=== PATIENT | female | born 1990 | race Caucasian/White ===

== ENCOUNTER 2016-09-01 11:23 | Inpatient (IN) | payer OTHER ==
[2016-09-01] VITALS (8 sets, daily range): BP systolic 98; BP diastolic 61; PULSE 77–91; RESP 18; Ht 152.4 cm; Wt 65.0 kg
[~2016-09-01] VITALS: Ht 152.4 cm; Wt 65.0 kg
[2016-09-01] MEDS ORDERED: CALC600T11 PO (11:41)
[2016-09-01] MEDS ORDERED: FER325 PO (11:41)
[2016-09-01] MEDS ORDERED: PRENAT PO (11:41)
[2016-09-01] MEDS: LACTATED RINGER'S 1,000 ML IV* SCH ×2 (12:15→20:30)
[2016-09-01] MEDS ORDERED: LACTATED RINGER'S 1,000 ML IV ONE (12:30)
[2016-09-01 12:34] LABS: BASOPHILS % 0.3 % (0.0-2.0); EOSINOPHILS # 1.7 10^3/ul (0.0-0.5); EOSINOPHILS % 15.2 % (0.0-7.0); HEMATOCRIT 33.7 % (37.0-47.0); HEMOGLOBIN 11.3 g/dl (12.0-16.0); LYMPHOCYTES # 2.1 10^3/ul (0.8-2.9); LYMPHOCYTES % 19.4 % (15.0-51.0); MEAN CORPUSCULAR HEMOGLOBIN 30.8 pg (29.0-33.0); MEAN CORPUSCULAR HGB CONC 33.4 g/dl (32.0-37.0); MEAN CORPUSCULAR VOLUME 92.1 fl (82.0-101.0); MONOCYTE # 0.7 10^3/ul (0.3-0.9); MONOCYTES % 6.5 % (0.0-11.0); NEUTROPHIL # 6.5 10^3/ul (1.6-7.5); NEUTROPHILS % 58.6 % (39.0-77.0); PLATELET COUNT 207 10^3/UL (140-440); RED BLOOD COUNT 3.66 10^6/ul (4.20-5.40); RED CELL DISTRIBUTION WIDTH 13.5 % (11.5-14.5)
[2016-09-01 12:36] LABS: CONDITION 1; LH ANALYZER COMMENTS 1
--- NOTE | 2016-09-01 12:47 | RADRPT ---
PROCEDURE: Limited obstetric ultrasound CLINICAL INDICATION: Pain TECHNIQUE: Multiple transverse and longitudinal grayscale images of the pelvis were obtained sanderson sabdominally and transvaginally.. COMPARISON: same day FINDINGS: The cervix is closed with a length of 4.7 cm. There is a single viable intrauterine gestation. Cardiac activity is present with 146 beats per min [place]. There is a breech presentation. The placenta is posterior. There is no evidence for an abruption or placenta previa. RPTAT: AA IMPRESSION: Cervix length measures 4.7 cm. .Shravan Chavez MD, MD Date Time Electronically viewed and signed by .Shravan Chavez MD, on 09/01/2016 12:47 .S/
[2016-09-01] MEDS ORDERED: TERBUTALINE 1 MG/ML INJ SC PRN (14:00)
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
[2016-09-01] MEDS ORDERED: MAGNESIUM SULFATE 4 GM/100 ML 100 ML IV ONE (15:00)
[2016-09-01] MEDS ORDERED: ONDANSETRON 4 MG INJ IV PRN (15:00)
[2016-09-01] MEDS: LACTATED RINGER'S 1,000 ML IV SCH ×2 (15:31→22:43)
[2016-09-01] MEDS: BETAMET NA PHOS/AC(6 MG/ML) 5ML INJ IM SCH (15:43)
[2016-09-01] MEDS: MAGNESIUM SULFATE 20 GM/500 ML 500 ML IV SCH (16:10)
[2016-09-01 16:23] LABS: ADD UMIC NO; URINE BILIRUBIN (Dip) NEGATIVE (NEGATIVE); URINE BLOOD (Dip) NEGATIVE (NEGATIVE); URINE COLOR LT. YELLOW (YELLOW); URINE GLUCOSE (Dip) NEGATIVE (NEGATIVE); URINE KETONES (Dip) NEGATIVE (NEGATIVE); URINE LEUKOCYTE ESTERASE (Dip) NEGATIVE (NEGATIVE); URINE NITRITE (Dip) NEGATIVE (NEGATIVE); URINE TOTAL PROTEIN (Dip) NEGATIVE (NEGATIVE); URINE UROBILINOGEN (Dip) 0.2 E.U./dL (0.1-1.0)
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
[2016-09-02] MEDS: MAGNESIUM SULFATE 20 GM/500 ML 500 ML IV SCH ×3 (01:13→22:17)
[2016-09-02] MEDS: ACETAMINOPHEN 325 MG TAB PO PRN (01:42)
[2016-09-02] MEDS: LACTATED RINGER'S 1,000 ML IV* SCH ×3 (04:30→20:49)
[2016-09-02] MEDS: LACTATED RINGER'S 1,000 ML IV SCH ×3 (07:54→22:43)
[2016-09-02] MEDS: FERROUS SULFATE (EC) 325 MG TAB PO SCH (10:41)
[2016-09-02] MEDS: MULTIVIT/MIN/FOLATE/IRON/PREN TAB PO SCH (10:41)
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
[2016-09-02] MEDS: BETAMET NA PHOS/AC(6 MG/ML) 5ML INJ IM SCH (15:43)
[2016-09-02] MEDS: INDOMETHACIN 25 MG PO SCH ×2 (15:46→18:00)
[2016-09-03] MEDS: INDOMETHACIN 25 MG PO SCH ×3 (00:58→12:04)
[2016-09-03] MEDS: LACTATED RINGER'S 1,000 ML IV SCH ×2 (01:18→09:42)
[2016-09-03] MEDS: MAGNESIUM SULFATE 20 GM/500 ML 500 ML IV SCH (06:49)
[2016-09-03] MEDS: ACETAMINOPHEN 325 MG TAB PO PRN ×2 (08:01→15:04)
[2016-09-03] MEDS: MULTIVIT/MIN/FOLATE/IRON/PREN TAB PO SCH (09:40)
[2016-09-03] MEDS: FERROUS SULFATE (EC) 325 MG TAB PO SCH (09:40)
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
--- NOTE | 2016-09-03 16:11 | PD.PPDC ---
[facility] Discharge Instruction Provider Information Physician Information 26 y/o female had cessation of UCs by Magnesium Sulfate Diagnosis Final Diagnosis: S/P uterine contractions Condition Patient Condition: Good (on EFM no U/C seen and patient did not have any other complaints ) Diet Diet: Resume Regular Diet Activity/Restrictions Activity: Bedrest May Shower Restrictions: No Exercising No Lifting Nothing in the Vagina Follow-up Follow-up with Physician: 1, Week/Weeks (in clinic for F/U ) Return to clinic for Comment: persistent abdominal discomfort LIANG FRANCE MD Sep 03, 2016 16:11
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
[2016-09-03] MEDS ORDERED: NIFEdipine 10 MG CAP PO SCH (18:00)
== END 2016-09-03 16:53 | disposition home or self-care (01) | DRG 780 ==
LOC: OBT 11:23 → L-D 11:28 → OBT 14:37 → L-D 14:39 → OBG 23:25
PROVIDERS: ADMIT Obstetrics & Gynecology; ATTEND Obstetrics & Gynecology
DX: O47.02 False labor before 37 completed weeks of gestation, second trimester (principal); Z3A.24 24 weeks gestation of pregnancy; V49.9XXA Car occupant (driver) (passenger) injured in unspecified traffic accident, initial encounter; Y92.410 Unspecified street and highway as the place of occurrence of the external cause
CPT/HCPCS: 36415; 76815; 76817; 81003; 83735; 85025; 86850; 86900; 86901; 96360; 96361; 96372; G0463; J0702; J3105; J3475; J7120

== ENCOUNTER 2016-10-06 00:06 | Outpatient (CLI) | payer OTHER ==
[~2016-10-06] VITALS: Ht 154.9 cm; Wt 66.3 kg
[~2016-10-06 00:06] MED LIST: CALC600T11 PO; FER325 PO; PRENAT PO
[2016-10-06 01:23] VITALS: BP 101/70; PULSE 98; RESP 18
[2016-10-06] MEDS ORDERED: PRO20 PO (01:26)
[2016-10-06] MEDS ORDERED: NITR-58 PO (01:27)
[2016-10-06] MEDS ORDERED: LACTATED RINGER'S 1,000 ML IV STA (01:41)
[2016-10-06] MEDS ORDERED: NIFEdipine 10 MG CAP PO SCH (01:48)
[2016-10-06] MEDS: LACTATED RINGER'S 1,000 ML IV SCH ×2 (02:00→02:54)
--- NOTE | 2016-10-06 02:30 | RADRPT ---
PROCEDURE: US OB biophysical profile. CLINICAL INDICATION: decreased movements TECHNIQUE: Multiple sonographic images of the pelvis were obtained. The images were reviewed on a PACS workstation. COMPARISON: No pertinent prior examinations were submitted for comparison. FINDINGS: There is a single viable intrauterine gestation. Cardiac activity is present with 163 beats per min [place]. There is a vertex presentation. The placenta is posterior and grade 1 in appearance. There is a increased amount of amniotic fluid with an ROBYN = 21.4 cm. The cervix is closed, measuring up to 6.3 cm. Biophysical profile: movement 2/2 tone 2/2. breathing 2/2 ROBYN 2/2 Total 03/08 IMPRESSION: Normal biophysical profile. Polyhydramnios. RPTAT: HIKT . .Chuy Field MD, Date Time Electronically viewed and signed by .Chuy Field MD, on 10/06/2016 02:29 .T/
[2016-10-06 02:35] LABS: URINE BLOOD (Dip) POC Negative (NEGATIVE)
[2016-10-06] MEDS: TERBUTALINE 1 MG/ML INJ SC PRN ×2 (02:45→05:18)
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
--- NOTE | 2016-10-06 07:45 | TRIAGE ---
OB Triage Datetime Report Generated by CPN: 10/06/2016 07:44 Datetime: 10/06/2016 07:00 Stage of : OB Triage Datetime: 10/06/2016 06:30 Labor Evaluation Frequency: 0 Monitor Mode: External Resting Tone O'Donnell: Relaxed Heart Rate FHR Baseline Rate: 145 Monitor Mode: External US Variability: Moderate 6-25 bpm Accelerations: 15X15 Decelerations: Variable Category: Category I Comments: Appropriate for ga Datetime: 10/06/2016 06:12 Stage of : OB Triage Datetime: 10/06/2016 05:30 Stage of : OB Triage Labor Evaluation Frequency: X3 Monitor Mode: External Duration (sec)2399: 30-50 Quality: Mild Pattern: Normal: <= 5 Contractions in 10 Minutes Resting Tone O'Donnell: Relaxed Heart Rate FHR Baseline Rate: 135 Monitor Mode: External US Variability: Moderate 6-25 bpm Accelerations: 15X15 Decelerations: None Datetime: 10/06/2016 04:30 Stage of : OB Triage Labor Evaluation Frequency: X 4 Monitor Mode: External Duration (sec)2399: 30-50 Quality: Mild Pattern: Normal: <= 5 Contractions in 10 Minutes Resting Tone O'Donnell: Relaxed Heart Rate FHR Baseline Rate: 135 Monitor Mode: External US Variability: Moderate 6-25 bpm Accelerations: 15X15 Decelerations: None Datetime: 10/06/2016 03:30 Stage of : OB Triage Labor Evaluation Frequency: IRREG Monitor Mode: External Duration (sec)2399: 60-70 Quality: Mild Pattern: Normal: <= 5 Contractions in 10 Minutes Resting Tone O'Donnell: Relaxed Heart Rate FHR Baseline Rate: 135 Monitor Mode: External US Variability: Moderate 6-25 bpm Accelerations: 15X15 Decelerations: None Category: Category I Datetime: 10/06/2016 02:30 Stage of : OB Triage Labor Evaluation Frequency: 3-5 Monitor Mode: External Duration (sec)2399: 40-100 Quality: Mild Pattern: Normal: <= 5 Contractions in 10 Minutes Resting Tone O'Donnell: Relaxed Heart Rate FHR Baseline Rate: 135 Monitor Mode: External US Variability: Moderate 6-25 bpm Accelerations: 15X15 Decelerations: None Category: Category I Datetime: 10/06/2016 01:39 Stage of : OB Triage Datetime: 10/06/2016 01:37 Stage of : OB Triage Datetime: 10/06/2016 01:30 Stage of : OB Triage Labor Evaluation Frequency: 3-5 Monitor Mode: External Duration (sec)2399: 40-100 Quality: Mild Resting Tone O'Donnell: Relaxed Heart Rate FHR Baseline Rate: 135 Monitor Mode: External US Variability: Moderate 6-25 bpm Accelerations: 15X15 Decelerations: None Category: Category I Datetime: 10/06/2016 01:10 Stage of : OB Triage Datetime: 10/06/2016 00:38 Assessment Type: Triage Maternal Assessment Level of Consciousness: Fully Conscious DTR's/Clonus: DTRs 1+; No Clonus Headache: Denies Blurred Vision: No Respiratory Effort: Unlabored Breath Sounds, Left: Clear and Equal Breath Sounds, Right: Clear and Equal Nausea/Vomiting: Denies RUQ Epigastric Pain: Denies Lower Extremities Edema: None Degree: None Upper Extremities Edema: None Degree: None Facial Edema: None Fall Risk Assessment History of Falling: (0) No Secondary Diagnosis: (15) Yes (Annotations: PTL ONBEDREST AND PROCARDIA) Ambulatory Aid: (0) Bedrest/Nurse Assist IV Therapy: (0) No Gait: (0) Normal/Bedrest/Immobile Mental Status: (0) Oriented to Own Ability Fall Score: 15 Fall Risk Score Definition: No Risk: No action required Datetime: 10/06/2016 00:21 Stage of : OB Triage Monitor Mode: External US Datetime: 10/06/2016 00:14 Monitor Mode: External Datetime: 10/06/2016 00:03 Time of Arrival: 10/05/2016 23:57 EGA: 29.0 Arrived By: Ambulatory Arrived From: Home Chief Complaint: UCS Movement: Decreased Contractions: Irregular Time Contractions Began: 10/05/2016 15:00 Contractions: irregular Rupture of Membranes: Denies Vaginal Bleeding: None Vaginal Discharge: Denies Recent Sexual Intercouse: Denies Abdominal Trauma: Not Applicable Patient Complaints: Cramping Provider Notified: REICHE Initial Plan: VS, EFM, IV HYDRATION, PROCARDIA, BPP. CL, TERB PRN Datetime: 09/03/2016 17:00 Stage of : Antepartum Maternal Assessment Level of Consciousness: Fully Conscious Headache: Denies Nausea/Vomiting: Denies RUQ Epigastric Pain: Denies Labor Evaluation Frequency: 0/hr Monitor Mode: External Vaginal Bleeding: None Datetime: 09/03/2016 16:05 Stage of : Antepartum Maternal Assessment Level of Consciousness: Fully Conscious Headache: Denies Nausea/Vomiting: Denies RUQ Epigastric Pain: Denies Labor Evaluation Frequency: 0/hr Monitor Mode: External Vaginal Bleeding: None Datetime: 09/03/2016 15:05 Stage of : Antepartum Maternal Assessment Level of Consciousness: Fully Conscious Headache: Denies Nausea/Vomiting: Denies RUQ Epigastric Pain: Denies Labor Evaluation Frequency: 0/hr Monitor Mode: External Vaginal Bleeding: None Datetime: 09/03/2016 15:02 Pain Assessment Pain Scale: 3 Pain Presence: Constant Pain Type: Dull Pain Location: Head Pain Relief Measures: Pain Medication Given Datetime: 09/03/2016 14:00 Stage of : Antepartum Maternal Assessment Level of Consciousness: Fully Conscious Headache: Denies Nausea/Vomiting: Denies RUQ Epigastric Pain: Denies Labor Evaluation Frequency: 0/hr Monitor Mode: External Pain Assessment Pain Scale: 0 Pain Presence: None/Denies Vaginal Bleeding: None Datetime: 09/03/2016 13:00 Stage of : Antepartum Maternal Assessment Level of Consciousness: Fully Conscious Headache: Denies Nausea/Vomiting: Denies RUQ Epigastric Pain: Denies Labor Evaluation Frequency: 0/hr Monitor Mode: External Pain Assessment Pain Scale: 0 Pain Presence: None/Denies Vaginal Bleeding: None Datetime: 09/03/2016 12:29 Heart Rate FHR Baseline Rate: 145 Variability: Moderate 6-25 bpm Comments: ega 24.2/ fht's q shift Datetime: 09/03/2016 12:00 Stage of : Antepartum Maternal Assessment Level of Consciousness: Fully Conscious DTR's/Clonus: DTRs 2+ Headache: Denies Breath Sounds, Left: Clear and Equal Breath Sounds, Right: Clear and Equal Nausea/Vomiting: Denies RUQ Epigastric Pain: Denies Labor Evaluation Frequency: 0/hr Monitor Mode: External Pain Assessment Pain Scale: 0 Pain Presence: None/Denies Vaginal Bleeding: None Datetime: 09/03/2016 11:52 Comments: orders from dr. ochoa to d/c magnesium sulfate at 1500 today and start on procardia 10m g q 6 Datetime: 09/03/2016 11:00 Stage of : Antepartum Maternal Assessment Level of Consciousness: Fully Conscious Headache: Denies Nausea/Vomiting: Denies RUQ Epigastric Pain: Denies Labor Evaluation Frequency: 0/hr Monitor Mode: External Pain Assessment Pain Scale: 0 Pain Presence: None/Denies Vaginal Bleeding: None Datetime: 09/03/2016 10:00 Stage of : Antepartum Maternal Assessment Level of Consciousness: Fully Conscious Headache: Denies Nausea/Vomiting: Denies RUQ Epigastric Pain: Denies Labor Evaluation Frequency: 0/hr Monitor Mode: External Pain Assessment Pain Scale: 0 Pain Presence: None/Denies Vaginal Bleeding: None Datetime: 09/03/2016 09:00 Stage of : Antepartum Maternal Assessment Level of Consciousness: Fully Conscious Headache: Denies Nausea/Vomiting: Denies RUQ Epigastric Pain: Denies Labor Evaluation Frequency: 0/hr Monitor Mode: External Pain Assessment Pain Scale: 0 Pain Presence: None/Denies Vaginal Bleeding: None Datetime: 09/03/2016 07:54 Pain Assessment Pain Scale: 2 Pain Presence: Constant Pain Type: Dull Pain Location: Head Pain Relief Measures: Pain Medication Given Datetime: 09/03/2016 07:53 Stage of : Antepartum Assessment Type: Ongoing Assessment Maternal Assessment Level of Consciousness: Fully Conscious Maternal Assessment Level of Consciousness: Fully Conscious DTR's/Clonus: DTRs 2+; No Clonus DTR's/Clonus: DTRs 2+ Headache: Denies Headache: Frontal Blurred Vision: No Blurred Vision: No Respiratory Effort: Unlabored; Regular Rhythm; Equal Expansion Breath Sounds, Left: Clear and Equal Breath Sounds, Right: Clear and Equal Nausea/Vomiting: Denies Nausea/Vomiting: Denies RUQ Epigastric Pain: Denies RUQ Epigastric Pain: Denies Lower Extremities Edema: None Degree: None Upper Extremities Edema: None Degree: None Facial Edema: None Temperature Route: Oral Fall Risk Assessment History of Falling: (0) No Secondary Diagnosis: (0) No Ambulatory Aid: (0) Bedrest/Nurse Assist IV Therapy: (20) Yes Gait: (0) Normal/Bedrest/Immobile Mental Status: (0) Oriented to Own Ability Fall Score: 20 Fall Risk Score Definition: No Risk: No action required Labor Evaluation Frequency: 0/hr Monitor Mode: External Comments: nst q shift ega 24.2 Pain Assessment Pain Scale: 0 Pain Presence: None/Denies Vaginal Bleeding: None Datetime: 09/03/2016 06:56 Labor Evaluation Frequency: 0 Monitor Mode: External Duration (sec)2399: denies Resting Tone O'Donnell: Relaxed Pain Presence: None/Denies Pain Type: N/A Datetime: 09/03/2016 06:00 Labor Evaluation Frequency: x1 Monitor Mode: External Duration (sec)2399: 50 Resting Tone O'Donnell: Relaxed Pain Presence: None/Denies Pain Type: N/A Datetime: 09/03/2016 05:00 Labor Evaluation Frequency: irregular Monitor Mode: External Duration (sec)2399: 40-50 Quality: Mild Resting Tone O'Donnell: Relaxed Pain Presence: None/Denies Pain Type: N/A Datetime: 09/03/2016 04:00 Labor Evaluation Frequency: 0 Monitor Mode: External Duration (sec)2399: denies Resting Tone O'Donnell: Relaxed Datetime: 09/03/2016 03:00 Labor Evaluation Frequency: x3 Monitor Mode: External Duration (sec)2399: 40-70 Resting Tone O'Donnell: Relaxed Pain Presence: None/Denies Pain Type: N/A Datetime: 09/03/2016 02:00 Labor Evaluation Frequency: 0 Monitor Mode: External Duration (sec)2399: denies Resting Tone O'Donnell: Relaxed Pain Presence: None/Denies Pain Type: N/A Datetime: 09/03/2016 01:00 Labor Evaluation Frequency: x1 Monitor Mode: External Duration (sec)2399: 50 Resting Tone O'Donnell: Relaxed Pain Presence: None/Denies Pain Type: N/A Datetime: 09/03/2016 00:49 Maternal Assessment Level of Consciousness: Fully Conscious Headache: Denies Blurred Vision: No Datetime: 09/03/2016 00:00 Labor Evaluation Frequency: 0 Monitor Mode: External Duration (sec)2399: denies Resting Tone O'Donnell: Relaxed Heart Rate FHR Baseline Rate: 165 Monitor Mode: Doppler Comments: listened for one full minute. Datetime: 09/02/2016 23:00 Labor Evaluation Frequency: 0 Monitor Mode: External Resting Tone O'Donnell: Relaxed Pain Presence: None/Denies Pain Type: N/A Datetime: 09/02/2016 22:00 Labor Evaluation Frequency: 0 Monitor Mode: External Resting Tone O'Donnell: Relaxed Pain Presence: None/Denies Pain Type: N/A Datetime: 09/02/2016 21:00 Labor Evaluation Frequency: x1 Monitor Mode: External Duration (sec)2399: 40 Quality: Mild Resting Tone O'Donnell: Relaxed Pain Presence: None/Denies Pain Type: N/A Datetime: 09/02/2016 20:00 Labor Evaluation Frequency: 0 Monitor Mode: External Duration (sec)2399: denies Resting Tone O'Donnell: Relaxed Pain Presence: None/Denies Pain Type: N/A Datetime: 09/02/2016 19:49 Stage of : Antepartum Assessment Type: Ongoing Assessment Maternal Assessment Level of Consciousness: Fully Conscious DTR's/Clonus: DTRs 2+; No Clonus Headache: Denies Blurred Vision: No Respiratory Effort: Unlabored; Regular Rhythm; Equal Expansion Breath Sounds, Left: Clear and Equal Breath Sounds, Right: Clear and Equal Nausea/Vomiting: Denies RUQ Epigastric Pain: Denies Lower Extremities Edema: None Degree: None Upper Extremities Edema: None Degree: None Facial Edema: None Temperature Route: Oral Fall Risk Assessment History of Falling: (0) No Secondary Diagnosis: (0) No Ambulatory Aid: (0) Bedrest/Nurse Assist IV Therapy: (0) No Gait: (0) Normal/Bedrest/Immobile Mental Status: (0) Oriented to Own Ability Fall Score: 0 Fall Risk Score Definition: No Risk: No action required Pain Presence: None/Denies Pain Type: N/A Datetime: 09/02/2016 19:00 Labor Evaluation Frequency: NONE Monitor Mode: External Pattern: Normal: <= 5 Contractions in 10 Minutes Resting Tone O'Donnell: Relaxed Datetime: 09/02/2016 17:52 Labor Evaluation Frequency: X1 Monitor Mode: External Duration (sec)2399: 50 Pattern: Normal: <= 5 Contractions in 10 Minutes Resting Tone O'Donnell: Relaxed Datetime: 09/02/2016 17:00 Labor Evaluation Frequency: NONE Monitor Mode: External Pattern: Normal: <= 5 Contractions in 10 Minutes Resting Tone O'Donnell: Relaxed Datetime: 09/02/2016 16:00 Labor Evaluation Frequency: NONE Monitor Mode: External Pattern: Normal: <= 5 Contractions in 10 Minutes Resting Tone O'Donnell: Relaxed Datetime: 09/02/2016 15:00 Labor Evaluation Frequency: NONE Monitor Mode: External Pattern: Normal: <= 5 Contractions in 10 Minutes Resting Tone O'Donnell: Relaxed Datetime: 09/02/2016 14:00 Labor Evaluation Frequency: NONE Monitor Mode: External Pattern: Normal: <= 5 Contractions in 10 Minutes Resting Tone O'Donnell: Relaxed Datetime: 09/02/2016 13:00 Labor Evaluation Frequency: X1 Monitor Mode: External Duration (sec)2399: 60 Quality: Mild Pattern: Normal: <= 5 Contractions in 10 Minutes Resting Tone O'Donnell: Relaxed Datetime: 09/02/2016 12:00 Labor Evaluation Frequency: X1 Monitor Mode: External Duration (sec)2399: 40 Quality: Mild Pattern: Normal: <= 5 Contractions in 10 Minutes Resting Tone O'Donnell: Relaxed Datetime: 09/02/2016 11:00 Labor Evaluation Frequency: NONE Monitor Mode: External Pattern: Normal: <= 5 Contractions in 10 Minutes Resting Tone O'Donnell: Relaxed Datetime: 09/02/2016 10:10 Monitor Mode: Doppler Comments: HEART TONE OBTAINED FOR 1 MINUTE. FHTS IN THE 140'S. Datetime: 09/02/2016 10:01 Labor Evaluation Frequency: 40-50 Monitor Mode: External Quality: Mild Pattern: Normal: <= 5 Contractions in 10 Minutes Resting Tone O'Donnell: Relaxed Datetime: 09/02/2016 09:00 Labor Evaluation Frequency: X2 Monitor Mode: External Duration (sec)2399: 40-50 Quality: Mild Pattern: Normal: <= 5 Contractions in 10 Minutes Resting Tone O'Donnell: Relaxed Datetime: 09/02/2016 08:20 Assessment Type: Ongoing Assessment Maternal Assessment Level of Consciousness: Fully Conscious DTR's/Clonus: DTRs 2+; No Clonus Headache: Denies Blurred Vision: No Respiratory Effort: Unlabored; Regular Rhythm; Equal Expansion Breath Sounds, Left: Clear and Equal Breath Sounds, Right: Clear and Equal Nausea/Vomiting: Denies RUQ Epigastric Pain: Denies Lower Extremities Edema: None Upper Extremities Edema: Bilateral Upper Extremities Facial Edema: None Fall Risk Assessment History of Falling: (0) No Secondary Diagnosis: (0) No Ambulatory Aid: (0) Bedrest/Nurse Assist IV Therapy: (20) Yes Gait: (0) Normal/Bedrest/Immobile Mental Status: (0) Oriented to Own Ability Fall Score: 20 Fall Risk Score Definition: No Risk: No action required Datetime: 09/02/2016 08:00 Labor Evaluation Frequency: NONE Monitor Mode: External Pattern: Normal: <= 5 Contractions in 10 Minutes Resting Tone O'Donnell: Relaxed Datetime: 09/02/2016 06:59 Labor Evaluation Frequency: x2 Monitor Mode: External Duration (sec)2399: 50 Quality: Mild Resting Tone O'Donnell: Relaxed Contraction Comments: pt without complaint of uc pain Datetime: 09/02/2016 06:00 Labor Evaluation Frequency: x2 Monitor Mode: External Duration (sec)2399: 70-80 Quality: Mild Resting Tone O'Donnell: Relaxed Contraction Comments: pt feels ucs as mild Pain Assessment Pain Scale: 3 Pain Presence: Intermittent Pain Type: Cramping Pain Location: Abdomen Pain Goal: 0 Datetime: 09/02/2016 05:00 Labor Evaluation Frequency: x2 Monitor Mode: External Duration (sec)2399: 40 Quality: Mild Resting Tone O'Donnell: Relaxed Contraction Comments: pt c/o mild uc pain Datetime: 09/02/2016 04:00 Labor Evaluation Frequency: x4 Monitor Mode: External Duration (sec)2399: 50-90 Quality: Mild Resting Tone O'Donnell: Relaxed Contraction Comments: pt c/o mild uc pain Pain Assessment Pain Scale: 3 Pain Presence: Intermittent Pain Type: Crushing Pain Location: Abdomen Pain Goal: 0 Datetime: 09/02/2016 03:00 Labor Evaluation Frequency: x3 Monitor Mode: External Duration (sec)2399: 40-80 Quality: Mild Resting Tone O'Donnell: Relaxed Contraction Comments: pt c/o mild uc pain Pain Assessment Pain Scale: 2 Pain Presence: Intermittent Pain Type: Contraction Pain Location: Abdomen Pain Goal: 0 Datetime: 09/02/2016 02:00 Labor Evaluation Frequency: x2 Monitor Mode: External Duration (sec)2399: 40-70 Quality: Mild Resting Tone O'Donnell: Relaxed Contraction Comments: pt without complaint of uc pain Pain Assessment Pain Scale: 6 Pain Presence: Constant Pain Type: Ache Pain Location: Head Pain Relief Measures: Pain Medication Given Datetime: 09/02/2016 01:42 Pain Assessment Pain Scale: 6 Pain Presence: Constant Pain Type: Ache Pain Location: Head Pain Goal: 4 Pain Relief Measures: Pain Medication Given; Comfort Measures Datetime: 09/02/2016 01:00 Labor Evaluation Frequency: x5 Monitor Mode: External Duration (sec)2399: 40-60 Quality: Mild Resting Tone O'Donnell: Relaxed Contraction Comments: pt c/o mild uc pain in lower abdominal area Pain Assessment Pain Scale: 2 Pain Presence: Intermittent Pain Type: Cramping Pain Location: Abdomen Datetime: 09/02/2016 00:00 Labor Evaluation Frequency: x2 Monitor Mode: External Duration (sec)2399: 40-70 Quality: Mild Resting Tone O'Donnell: Relaxed Contraction Comments: pt without complaint of uc pain Datetime: 09/01/2016 23:48 Maternal Assessment Level of Consciousness: Fully Conscious Headache: Denies Blurred Vision: No Nausea/Vomiting: Denies RUQ Epigastric Pain: Denies Facial Edema: None Datetime: 09/01/2016 22:27 Assessment Type: Admission Assessment Vaginal Bleeding: None Maternal Assessment Level of Consciousness: Fully Conscious DTR's/Clonus: DTRs 2+; No Clonus Headache: Denies Blurred Vision: No Respiratory Effort: Unlabored; Regular Rhythm; Equal Expansion Breath Sounds, Left: Clear and Equal Breath Sounds, Right: Clear and Equal Nausea/Vomiting: Denies RUQ Epigastric Pain: Denies Lower Extremities Edema: None Degree: None Upper Extremities Edema: None Degree: None Facial Edema: None Fall Risk Assessment History of Falling: (0) No Secondary Diagnosis: (0) No Ambulatory Aid: (0) Bedrest/Nurse Assist IV Therapy: (20) Yes Gait: (0) Normal/Bedrest/Immobile Mental Status: (0) Oriented to Own Ability Fall Score: 20 Fall Risk Score Definition: No Risk: No action required Labor Evaluation Frequency: 10-12 Duration (sec)2399: 20 Quality: Mild Pattern: Normal: <= 5 Contractions in 10 Minutes Resting Tone O'Donnell: Relaxed Pain Assessment Pain Scale: 2 Pain Presence: Intermittent Pain Type: Dull; Ache Pain Location: Abdomen Pain Goal: 2 Vaginal Exam Membrane Status: Intact Datetime: 09/01/2016 22:11 Maternal Assessment Level of Consciousness: Fully Conscious Headache: Denies Respiratory Effort: Unlabored Breath Sounds, Left: Clear and Equal Breath Sounds, Right: Clear and Equal RUQ Epigastric Pain: Denies Labor Evaluation Frequency: 10-12 Monitor Mode: External Duration (sec)2399: 20-25 Quality: Mild Pattern: Normal: <= 5 Contractions in 10 Minutes Resting Tone O'Donnell: Relaxed Vaginal Exam Membrane Status: Intact Datetime: 09/01/2016 21:09 Stage of : Antepartum Maternal Assessment Level of Consciousness: Fully Conscious DTR's/Clonus: DTRs 2+ Headache: Denies Blurred Vision: No Respiratory Effort: Unlabored Breath Sounds, Left: Clear and Equal Breath Sounds, Right: Clear and Equal Nausea/Vomiting: Denies RUQ Epigastric Pain: Denies Facial Edema: None Labor Evaluation Frequency: X1 Monitor Mode: External Duration (sec)2399: 35 Quality: Mild Pattern: Normal: <= 5 Contractions in 10 Minutes Resting Tone O'Donnell: Relaxed Pain Assessment Pain Scale: 2 Pain Presence: Intermittent Pain Type: Dull; Ache Pain Location: Abdomen Pain Goal: 2 Pain Relief Measures: Comfort Measures Vaginal Exam Membrane Status: Intact Datetime: 09/01/2016 20:37 Labor Evaluation Frequency: 0 Monitor Mode: External Duration (sec)2399: 0 Resting Tone O'Donnell: Relaxed Comments: OFF THE MONITOR Datetime: 09/01/2016 19:57 Maternal Assessment Level of Consciousness: Fully Conscious DTR's/Clonus: DTRs 2+; No Clonus Headache: Denies Blurred Vision: No Nausea/Vomiting: Denies RUQ Epigastric Pain: Denies Facial Edema: None Labor Evaluation Frequency: X3 Monitor Mode: External Duration (sec)2399: 40-50 Quality: Mild Pattern: Normal: <= 5 Contractions in 10 Minutes Resting Tone O'Donnell: Relaxed Comments: OFF MONITOR Pain Assessment Pain Scale: 3 Pain Presence: Intermittent Pain Type: Cramping Pain Location: Abdomen Pain Goal: 0 Datetime: 09/01/2016 19:21 Labor Evaluation Frequency: X4 Monitor Mode: External Duration (sec)2399: 40-50 Quality: Mild Pattern: Normal: <= 5 Contractions in 10 Minutes Resting Tone O'Donnell: Relaxed Comments: OFF THE MONITOR Datetime: 09/01/2016 19:08 Headache: Denies Labor Evaluation Frequency: X2 Monitor Mode: External Duration (sec)2399: 40-50 Quality: Mild Resting Tone O'Donnell: Relaxed Comments: OFF MONITOR Pain Assessment Pain Scale: 4 Pain Presence: Intermittent Pain Type: Cramping Pain Location: Abdomen Pain Goal: 0 Pain Relief Measures: Comfort Measures Datetime: 09/01/2016 18:24 Labor Evaluation Frequency: 3-5 Monitor Mode: External Duration (sec)2399: 40-60 Quality: Mild Pattern: Normal: <= 5 Contractions in 10 Minutes Resting Tone O'Donnell: Relaxed Comments: OFF THE MONITOR Datetime: 09/01/2016 17:23 Labor Evaluation Frequency: 3-4 Monitor Mode: External Duration (sec)2399: 40-50 Quality: Mild Pattern: Normal: <= 5 Contractions in 10 Minutes Resting Tone O'Donnell: Relaxed Comments: OFF THE MONITOR Datetime: 09/01/2016 17:05 Labor Evaluation Frequency: 3-5 Monitor Mode: External Duration (sec)2399: 40-50 Quality: Mild Resting Tone O'Donnell: Relaxed Comments: OFF MONITOR Datetime: 09/01/2016 16:45 Stage of : Antepartum Assessment Type: Admission Assessment Maternal Assessment Level of Consciousness: Fully Conscious DTR's/Clonus: DTRs 2+; No Clonus Headache: Denies Blurred Vision: No Respiratory Effort: Unlabored Breath Sounds, Left: Clear and Equal Breath Sounds, Right: Clear and Equal Nausea/Vomiting: Denies RUQ Epigastric Pain: Denies Lower Extremities Edema: None Degree: None Upper Extremities Edema: None Degree: None Facial Edema: None Temperature Route: Oral Fall Risk Assessment History of Falling: (0) No Secondary Diagnosis: (0) No Ambulatory Aid: (0) Bedrest/Nurse Assist IV Therapy: (20) Yes Gait: (0) Normal/Bedrest/Immobile Mental Status: (0) Oriented to Own Ability Fall Score: 20 Fall Risk Score Definition: No Risk: No action required Labor Evaluation Frequency: X3 Monitor Mode: External Duration (sec)2399: 40-50 Quality: Mild Pattern: Normal: <= 5 Contractions in 10 Minutes Resting Tone O'Donnell: Relaxed Heart Rate FHR Baseline Rate: OFF MONITOR Monitor Mode: External US Datetime: 09/01/2016 14:30 Stage of : OB Triage Maternal Assessment Level of Consciousness: Fully Conscious Labor Evaluation Frequency: 1-3 Monitor Mode: External Duration (sec)2399: 30-50 Quality: Mild Resting Tone O'Donnell: Relaxed Monitor Mode: ORDERS FOR LIMITED MONITORING Pain Assessment Pain Scale: 3 Pain Presence: Intermittent Pain Type: Cramping Pain Location: Perineum Pain Goal: 3 Pain Relief Measures: Comfort Measures Vaginal Exam Membrane Status: Intact Vaginal Bleeding: None Datetime: 09/01/2016 11:39 Fall Score: 0 Fall Risk Score Definition: No Risk: No action required Datetime: 09/01/2016 11:33 Time of Arrival: 09/01/2016 21:00 EGA: 24.0 Arrived By: Ambulatory Arrived From: Home
== END 2016-10-06 07:23 | disposition home or self-care (01) ==
LOC: L-D 00:06 → OBT 00:06
PROVIDERS: ATTEND Obstetrics & Gynecology
DX: O60.03 Preterm labor without delivery, third trimester (principal); O23.43 Unspecified infection of urinary tract in pregnancy, third trimester; Z3A.29 29 weeks gestation of pregnancy
CPT/HCPCS: 36415; 76817; 76818; 81003; 96360; 96361; J3105; J7120; Z7500; Z7610; G0463

== ENCOUNTER 2016-10-21 15:22 | Outpatient (CLI) | payer OTHER ==
[~2016-10-21] VITALS: Ht 152.4 cm; Wt 67.9 kg
[~2016-10-21 15:22] MED LIST changes: -CALC600T11 PO; -FER325 PO; +NITR-58 PO; +PRO20 PO
[2016-10-21 16:02] LABS: ADD SCAN DIFF NO
[2016-10-21 16:04] LABS: ADD UMIC YES; BASOPHILS % 0.3 % (0.0-2.0); EOSINOPHILS # 1.2 10^3/ul (0.0-0.5); EOSINOPHILS % 13.3 % (0.0-7.0); HEMATOCRIT 35.9 % (37.0-47.0); HEMOGLOBIN 12.2 g/dl (12.0-16.0); LYMPHOCYTES # 2.1 10^3/ul (0.8-2.9); LYMPHOCYTES % 22.2 % (15.0-51.0); MEAN CORPUSCULAR HEMOGLOBIN 30.9 pg (29.0-33.0); MEAN CORPUSCULAR VOLUME 90.9 fl (82.0-101.0); MEAN PLATELET VOLUME 10.2 fl (7.4-10.4); MONOCYTE # 0.8 10^3/ul (0.3-0.9); MONOCYTES % 8.2 % (0.0-11.0); NEUTROPHIL # 5.2 10^3/ul (1.6-7.5); NEUTROPHILS % 55.7 % (39.0-77.0); PLATELET COUNT 204 10^3/UL (140-415); RED BLOOD COUNT 3.95 10^6/ul (4.20-5.40); RED CELL DISTRIBUTION WIDTH 13.1 % (11.5-14.5); URINE BILIRUBIN (Dip) NEGATIVE (NEGATIVE); URINE BLOOD (Dip) NEGATIVE (NEGATIVE); URINE COLOR LT. YELLOW (YELLOW); URINE GLUCOSE (Dip) NEGATIVE (NEGATIVE); URINE KETONES (Dip) NEGATIVE (NEGATIVE); URINE LEUKOCYTE ESTERASE (Dip) 1+ (NEGATIVE); URINE NITRITE (Dip) NEGATIVE (NEGATIVE); URINE TOTAL PROTEIN (Dip) NEGATIVE (NEGATIVE); URINE UROBILINOGEN (Dip) 0.2 E.U./dL (0.1-1.0); WHITE BLOOD COUNT 9.3 10^3/ul (4.8-10.8)
--- NOTE | 2016-10-21 16:11 | RADRPT ---
PROCEDURE: Limited obstetric ultrasound CLINICAL INDICATION: Pain TECHNIQUE: Multiple transverse and longitudinal grayscale images of the pelvis were obtained sanderson sabdominally and transvaginally.. COMPARISON: 10/06/2016 FINDINGS: The cervix is closed with a length of 5.1 cm. There is a single viable intrauterine gestation. Cardiac activity is present with 134 beats per min loraine. There is a vertex presentation. The placenta is fundal right. There is no evidence for an abruption or placenta previa. RPTAT: AA IMPRESSION: Cervix length measures 5.1 cm. .Shravan Chavez MD, Date Time Electronically viewed and signed by .Shravan Chavez MD, on 10/21/2016 16:11 .S/
[2016-10-21 16:28] LABS: BACTERIA,URINE FEW; SQUAMOUS EPITHELIAL CELL,UR MANY; URINE RBCS NONE SEEN /HPF (0)
[2016-10-21] MEDS ORDERED: TERBUTALINE 1 MG/ML INJ SC ONE (17:00)
[2016-10-21] MEDS ORDERED: NIFEdipine 10 MG CAP PO ONE (17:00)
[2016-10-21] MEDS ORDERED: LACTATED RINGER'S 1,000 ML IV SCH (17:00)
--- NOTE | 2016-10-21 17:51 | QN ---
Documentation Comment 26 y/o female G 4 P3 sent in from clinic for C/O uterine contractions q 5-6 min she is on Nifedipine for contractions. Cx: closed : length:>5 cm after IV hydration and SQ terbutaline U/C became much less will D/C home on Nifedipine LIANG FRANCE MD Oct 21, 2016 17:51
--- NOTE | 2016-10-21 20:14 | TRIAGE ---
OB Triage Datetime Report Generated by CPN: 10/21/2016 20:14 Datetime: 10/21/2016 19:59 Monitor Mode: External Datetime: 10/21/2016 19:17 Pain Assessment Pain Scale: 0 Pain Presence: None/Denies Pain Type: N/A Datetime: 10/21/2016 18:54 Labor Evaluation Frequency: 9-10 Monitor Mode: External Duration (sec)2399: 40-50 Quality: Mild Pattern: Normal: <= 5 Contractions in 10 Minutes Resting Tone [place]: Relaxed Heart Rate FHR Baseline Rate: 145 Monitor Mode: External US Variability: Moderate 6-25 bpm Decelerations: None Category: Category I Pain Assessment Pain Scale: 3 Pain Presence: Constant Pain Type: Cramping Pain Goal: 3 Datetime: 10/21/2016 18:22 Stage of : OB Triage Datetime: 10/21/2016 17:46 Stage of : OB Triage Datetime: 10/21/2016 17:20 Labor Evaluation Frequency: 7-8 Monitor Mode: External Duration (sec)2399: 50-70 Pattern: Normal: <= 5 Contractions in 10 Minutes Resting Tone [place]: Relaxed Heart Rate FHR Baseline Rate: 135 Monitor Mode: External US Variability: Moderate 6-25 bpm Accelerations: 10X10 Decelerations: None Category: Category I Pain Assessment Pain Scale: 3 Pain Presence: Constant Pain Type: Cramping Pain Location: Abdomen Pain Goal: 3 Pain Relief Measures: Comfort Measures Datetime: 10/21/2016 16:32 Stage of : OB Triage Labor Evaluation Frequency: 3-5 Monitor Mode: External Duration (sec)2399: 30-60 Pattern: Normal: <= 5 Contractions in 10 Minutes Resting Tone [place]: Relaxed Contraction Comments: FEELS MILDLY Heart Rate FHR Baseline Rate: 135 Monitor Mode: External US Variability: Moderate 6-25 bpm Decelerations: None Category: Category I Pain Assessment Pain Scale: 3 Pain Presence: Constant Pain Type: Cramping Pain Location: Abdomen Pain Goal: 3 Pain Relief Measures: Comfort Measures Datetime: 10/21/2016 15:45 Stage of : OB Triage Assessment Type: Triage Maternal Assessment Level of Consciousness: Fully Conscious DTR's/Clonus: DTRs 2+; No Clonus Headache: Denies Blurred Vision: No Respiratory Effort: Unlabored; Regular Rhythm; Equal Expansion Breath Sounds, Left: Clear and Equal Breath Sounds, Right: Clear and Equal Nausea/Vomiting: Denies RUQ Epigastric Pain: Denies Lower Extremities Edema: None Degree: None Upper Extremities Edema: None Degree: None Facial Edema: None Temperature Route: Axillary Fall Risk Assessment History of Falling: (0) No Secondary Diagnosis: (0) No Ambulatory Aid: (0) Bedrest/Nurse Assist IV Therapy: (0) No Gait: (0) Normal/Bedrest/Immobile Mental Status: (0) Oriented to Own Ability Fall Score: 0 Fall Risk Score Definition: No Risk: No action required Labor Evaluation Frequency: 0 APPLIED Monitor Mode: External Resting Tone [place]: Relaxed Heart Rate FHR Baseline Rate: 135 Monitor Mode: External US Variability: Moderate 6-25 bpm Decelerations: None Category: Category I Pain Assessment Pain Scale: 3 Pain Presence: Constant Pain Type: Cramping Pain Location: Abdomen Pain Goal: 3 Pain Relief Measures: Comfort Measures Datetime: 10/21/2016 15:44 Time of Arrival: 10/21/2016 15:20 EGA: 31.1 Arrived By: Ambulatory Arrived From: Dr. Office Chief Complaint: REFERRED FROM DR OFFICE FOR PTL, Movement: Present Contractions: Irregular Rupture of Membranes: Denies Vaginal Bleeding: None Vaginal Discharge: Denies Recent Sexual Intercouse: Denies Abdominal Trauma: Not Applicable Patient Complaints: Contractions; Cramping Time Provider Notified: 10/21/2016 15:30 Provider Notified: ISAI Initial Plan: MONITOR, CBC, U/A, CL, TERB .25 SQ X1, NIFEDIPINE 20MG PO , IV HYDRATION Datetime: 10/06/2016 00:38 Fall Score: 15 Fall Risk Score Definition: No Risk: No action required Datetime: 10/06/2016 00:03 EGA: 29.0 Datetime: 09/03/2016 07:53 Fall Score: 20 Fall Risk Score Definition: No Risk: No action required Datetime: 09/02/2016 19:49 Fall Score: 0 Fall Risk Score Definition: No Risk: No action required Datetime: 09/02/2016 08:20 Fall Score: 20 Fall Risk Score Definition: No Risk: No action required Datetime: 09/01/2016 22:27 Fall Score: 20 Fall Risk Score Definition: No Risk: No action required Datetime: 09/01/2016 16:45 Fall Score: 20 Fall Risk Score Definition: No Risk: No action required Datetime: 09/01/2016 11:39 Fall Score: 0 Fall Risk Score Definition: No Risk: No action required Datetime: 09/01/2016 11:33 EGA: 24.0
== END 2016-10-21 20:10 | disposition home or self-care (01) ==
LOC: OBT 15:22 → L-D 15:22 → OBT 20:10
PROVIDERS: ATTEND Obstetrics & Gynecology
DX: O60.03 Preterm labor without delivery, third trimester (principal); Z3A.31 31 weeks gestation of pregnancy
CPT/HCPCS: 36415; 76817; 81001; 85025; 96360; 96361; 96372; J3105; J7120; Z7500; Z7610; 81003; G0463

== ENCOUNTER 2016-12-05 22:37 | Outpatient (CLI) | payer OTHER ==
[~2016-12-05] VITALS: Ht 152.4 cm; Wt 70.9 kg
[~2016-12-05 22:37] MED LIST changes: -NITR-58 PO
[2016-12-05 23:00] VITALS: BP 126/79; PULSE 90; RESP 18; Ht 152.4 cm; Wt 70.9 kg
[2016-12-05] MEDS: LACTATED RINGER'S 1,000 ML IV SCH (23:44)
[2016-12-06] MEDS: LACTATED RINGER'S 1,000 ML IV SCH (00:26)
--- NOTE | 2016-12-06 04:02 | QN ---
Documentation Comment Laborist Dr Sullivan's pt 26 y.o. with a IUP at 38w 3d and c/o contractions since 1700 on 12/05. No VB or leaking. +FM. Pt did have issues with contractions and only just stopped taking Procardia in early November. PMHx: none. PSHx: none. NKDA. BP 126/79 T=98.3 NST: baseline 120 bpm with accels to 160 bpm. No decels. UC's q7-15 minutes. CX: 40%//-4 and no exchange trouble shooter almost 6 hours. A: IUP at 38w 3d. False labor. P: D/C home to rest and return when the UC's are consistently closer together and stronger. May also ask her doctor for an induction at 39 weeks. Reviewed labor precautions and kick counts. OSITO SINGH MD December 06, 2016 04:01
--- NOTE | 2016-12-06 04:45 | TRIAGE ---
OB Triage Datetime Report Generated by CPN: 12/06/2016 04:45 Datetime: 12/06/2016 03:32 Comments: loss of contact, pt moving in bed Datetime: 12/06/2016 03:00 Stage of : OB Triage Labor Evaluation Frequency: irregular Monitor Mode: External Duration (sec)2399: 70-100 Quality: Mild Pattern: Normal: <= 5 Contractions in 10 Minutes Resting Tone [place]: Relaxed Heart Rate FHR Baseline Rate: 120 Monitor Mode: External US Variability: Moderate 6-25 bpm Accelerations: 15X15 Decelerations: None Category: Category I Pain Assessment Pain Scale: 3 Pain Presence: Intermittent Pain Type: Contraction Pain Location: Abdomen; Back Pain Goal: 4 Pain Relief Measures: Comfort Measures Datetime: 12/06/2016 02:00 Labor Evaluation Frequency: 6-10 Monitor Mode: External Duration (sec)2399: 90-110 Quality: Moderate Pattern: Normal: <= 5 Contractions in 10 Minutes Resting Tone [place]: Relaxed Heart Rate FHR Baseline Rate: 115 Monitor Mode: External US Variability: Moderate 6-25 bpm Accelerations: 15X15 Decelerations: None Category: Category I Datetime: 12/06/2016 01:59 Vaginal Exam Dilatation (cms): 1.0 Effacement (%): 40 Station: -4 Exam By: CH Datetime: 12/06/2016 01:00 Labor Evaluation Frequency: irregular Monitor Mode: External Duration (sec)2399: 80-110 Quality: Moderate Pattern: Normal: <= 5 Contractions in 10 Minutes Resting Tone [place]: Relaxed Heart Rate FHR Baseline Rate: 120 Monitor Mode: External US Variability: Moderate 6-25 bpm Accelerations: 15X15 Decelerations: None Category: Category I Datetime: 12/06/2016 00:02 Effacement (%): 30 Station: -4 Datetime: 12/06/2016 00:00 Labor Evaluation Frequency: 1-8 Monitor Mode: External Duration (sec)2399: 50-130 Quality: Mild Pattern: Normal: <= 5 Contractions in 10 Minutes Resting Tone [place]: Relaxed Heart Rate FHR Baseline Rate: 135 Monitor Mode: External US FHR Baseline Changes: No Baseline Change Variability: Moderate 6-25 bpm Accelerations: 15X15 Decelerations: None Category: Category I Datetime: 12/05/2016 23:33 Time of Arrival: 12/05/2016 22:38 EGA: 38.2 Arrived By: Stretcher Arrived From: Home Chief Complaint: UC's Movement: Present Contractions: Irregular Time Contractions Began: 12/05/2016 17:00 Contractions: irregular Rupture of Membranes: Denies Vaginal Bleeding: None Vaginal Discharge: Denies Recent Sexual Intercouse: Denies Abdominal Trauma: Not Applicable Patient Complaints: Contractions Time Provider Notified: 12/05/2016 23:30 Provider Notified: Nate Initial Plan: NST, SVE Datetime: 12/05/2016 23:21 Vaginal Exam Dilatation (cms): 1.0 Exam By: TM Membrane Status: Intact Datetime: 12/05/2016 23:00 Assessment Type: Triage Maternal Assessment Level of Consciousness: Fully Conscious DTR's/Clonus: DTRs 2+; No Clonus Headache: Denies Blurred Vision: No Respiratory Effort: Unlabored Nausea/Vomiting: Denies RUQ Epigastric Pain: Denies Lower Extremities Edema: None Degree: None Upper Extremities Edema: None Degree: None Facial Edema: None Fall Risk Assessment History of Falling: (0) No Secondary Diagnosis: (0) No Ambulatory Aid: (0) Bedrest/Nurse Assist IV Therapy: (0) No Gait: (0) Normal/Bedrest/Immobile Mental Status: (0) Oriented to Own Ability Fall Score: 0 Fall Risk Score Definition: No Risk: No action required Labor Evaluation Frequency: x1 Monitor Mode: External Duration (sec)2399: 90 Quality: Mild Pattern: Normal: <= 5 Contractions in 10 Minutes Resting Tone [place]: Relaxed Heart Rate FHR Baseline Rate: 135 Monitor Mode: External US FHR Baseline Changes: No Baseline Change Variability: Moderate 6-25 bpm Accelerations: 15X15 Decelerations: None Category: Category I Datetime: 12/05/2016 22:48 Monitor Mode: External Resting Tone [place]: Relaxed Heart Rate FHR Baseline Rate: 135 Monitor Mode: External US Comments: placed on efm Datetime: 10/21/2016 20:00 Arrived By: Wheelchair Arrived From: Home Chief Complaint: UCs Movement: Present Contractions: Irregular Time Contractions Began: 12/05/2016 17:00 Contractions: irreg Rupture of Membranes: Denies Vaginal Discharge: Denies Recent Sexual Intercouse: Denies Abdominal Trauma: Not Applicable Patient Complaints: Contractions Datetime: 10/21/2016 19:59 Labor Evaluation Frequency: x1 Duration (sec)2399: x1 Pattern: Normal: <= 5 Contractions in 10 Minutes Resting Tone [place]: Relaxed Heart Rate FHR Baseline Rate: 140 Monitor Mode: External US Variability: Moderate 6-25 bpm Accelerations: 15X15 Decelerations: None Category: Category I Datetime: 10/21/2016 15:45 Fall Score: 0 Fall Risk Score Definition: No Risk: No action required Datetime: 10/21/2016 15:44 EGA: 31.6 Datetime: 10/06/2016 00:38 Fall Score: 15 Fall Risk Score Definition: No Risk: No action required Datetime: 10/06/2016 00:03 EGA: 29.5 Datetime: 09/03/2016 07:53 Fall Score: 20 Fall Risk Score Definition: No Risk: No action required Datetime: 09/02/2016 19:49 Fall Score: 0 Fall Risk Score Definition: No Risk: No action required Datetime: 09/02/2016 08:20 Fall Score: 20 Fall Risk Score Definition: No Risk: No action required Datetime: 09/01/2016 22:27 Fall Score: 20 Fall Risk Score Definition: No Risk: No action required Datetime: 09/01/2016 16:45 Fall Score: 20 Fall Risk Score Definition: No Risk: No action required Datetime: 09/01/2016 11:39 Fall Score: 0 Fall Risk Score Definition: No Risk: No action required Datetime: 09/01/2016 11:33 EGA: 24.5
== END 2016-12-06 03:58 | disposition home or self-care (01) ==
LOC: OBT 22:37 → L-D 22:38 → OBT 12-06 03:58
PROVIDERS: ATTEND Obstetrics & Gynecology
DX: O47.1 False labor at or after 37 completed weeks of gestation (principal); Z3A.38 38 weeks gestation of pregnancy
CPT/HCPCS: 36415; 96360; 96361; G0463; J7120

== ENCOUNTER 2016-12-17 10:17 | Inpatient (IN) | payer OTHER ==
[~2016-12-17] VITALS: Ht 152.4 cm; Wt 59.1 kg
[~2016-12-17 10:17] MED LIST changes: -PRO20 PO
[2016-12-17] MEDS ORDERED: MISOPROSTOL 200 MCG TAB PR PRN (11:00)
[2016-12-17] MEDS ORDERED: OXYTOCIN 30 UNITS/LR 500 ML IV PRN (11:00)
[2016-12-17] MEDS ORDERED: ACETAMINOPHEN/CODEINE #3 TAB PO PRN (11:00)
[2016-12-17] MEDS ORDERED: CARBOPROST 250 MCG INJ IM PRN (11:00)
[2016-12-17] MEDS ORDERED: LIDOCAINE 1% (MPF) 30 ML INJ INJ PRN (11:00)
[2016-12-17] MEDS ORDERED: IBUPROFEN 600 MG TAB PO PRN (11:00)
[2016-12-17] MEDS ORDERED: BUTORPHANOL 2 MG INJ IV PRN (11:00)
[2016-12-17] MEDS ORDERED: METHYLERGONOVINE 0.2 MG INJ IM PRN (11:00)
[2016-12-17] MEDS ORDERED: OXYTOCIN 30 UNITS/LR 500 ML IV SCH ×2 (11:00)
[2016-12-17] MEDS ORDERED: AMPICILLIN 2 GM/NS (PMX) 100 ML IV ONE (11:00)
[2016-12-17] MEDS: LACTATED RINGER'S 1,000 ML IV SCH ×3 (11:18→19:47)
[2016-12-17] MEDS ORDERED: DINOPROSTONE 10 MG VAG SUPP VAG ONE (12:00)
[2016-12-17] MEDS: MINERAL OIL LIGHT 10 ML VIAL TOP SCH (12:00)
[2016-12-17] MEDS ORDERED: LACTATED RINGER'S 1,000 ML IV PRN (12:00)
[2016-12-17 12:15] VITALS: BP 112/72; PULSE 95; RESP 18
[2016-12-17 12:21] LABS: ADD SCAN DIFF NO
[2016-12-17 12:24] LABS: BASOPHILS % 0.3 % (0.0-2.0); EOSINOPHILS # 0.8 10^3/ul (0.0-0.5); EOSINOPHILS % 10.6 % (0.0-7.0); HEMOGLOBIN 12.6 g/dl (12.0-16.0); LYMPHOCYTES # 1.5 10^3/ul (0.8-2.9); LYMPHOCYTES % 21.2 % (15.0-51.0); MEAN CORPUSCULAR HGB CONC 34.1 g/dl (32.0-37.0); MEAN CORPUSCULAR VOLUME 91.1 fl (82.0-101.0); MEAN PLATELET VOLUME 11.3 fl (7.4-10.4); MONOCYTE # 0.8 10^3/ul (0.3-0.9); MONOCYTES % 10.6 % (0.0-11.0); NEUTROPHIL # 4.2 10^3/ul (1.6-7.5); PLATELET COUNT 176 10^3/UL (140-415); RED BLOOD COUNT 4.06 10^6/ul (4.20-5.40); RED CELL DISTRIBUTION WIDTH 13.4 % (11.5-14.5); WHITE BLOOD COUNT 7.3 10^3/ul (4.8-10.8)
[2016-12-17 12:27] LABS: INR 0.86; PROTIME 11.7 Sec (12.2-14.2); PT RATIO 0.9
[2016-12-17] MEDS: AMPICILLIN 1 GM/NS (PMX) 50 ML IV SCH ×3 (16:22→23:01)
--- NOTE | 2016-12-17 18:26 | HP ---
Date/Time of Note Date/Time of Note DATE: 12/17/16 TIME: 18:24 OB - History Hx of Present Free Text/Dictation admitted for elective induction at term Last Menstrual Period: Mar 17, 2016 Estimated Due Date: December 22, 2016 : 4 Para: 3 Care: Good Care Ultrasounds: Normal mid trimester US Obstetrical Complications: None Medical Complications: None Past Family/Social History * Past Medical, Surgical, Family and Obstetric Histories reviewed from chart. Blood Type: O+ Rubella: immune RPR/VDRL: Negative GBS Status: Positive HBsAG: Negative OB Admission Exam Vital Signs Vital Signs Vital Signs Date Time Temp Pulse Resp B/P Pulse Ox O2 Delivery O2 Flow Rate FiO2 12/17/16 12:15 98.0 95 18 112/72 Room Air Physical Exam HEENT: WNL Heart: Rhythm Normal Lungs: Clear, Equal Abdomen: WNL Extremities: Normal Reflexes: Normal Cervical Dilatation: 1cm Effacement: 0% Station: -3 Membranes: Intact Heart Rate: 130's Accelerations: Accelerations Present Decelerations: No Decelerations Varibility: Marked Contractions on Admission: None Last 72 hours Lab Results CBC & BMP 12/17/16 11:18 OB Assessment/Plan Reason for admission: induction of labor Other Assessment: term gestation Induction Method: per Misoprostol Protocol LIANG FRANCE MD December 17, 2016 18:26
[2016-12-18] MEDS ORDERED: FENTAnyl 2MCG/ML-ROPIV 0.2% 100 ML ONE (01:55)
[2016-12-18] MEDS ORDERED: DIPHENHYDRAMINE 50 MG INJ IV PRN (03:00)
[2016-12-18] MEDS ORDERED: ONDANSETRON 4 MG INJ IV PRN (03:00)
[2016-12-18] MEDS ORDERED: NALOXONE (0.4 MG/ML) INJ IV PRN (03:00)
[2016-12-18] MEDS: AMPICILLIN 1 GM/NS (PMX) 50 ML IV SCH ×5 (03:12→19:00)
[2016-12-18] MEDS: LACTATED RINGER'S 1,000 ML IV SCH ×2 (05:52→13:57)
[2016-12-18] MEDS: FENTAnyl 2MCG/ML-ROPIV 0.2% 100 ML BAG EPI SCH ×2 (08:51→15:25)
[2016-12-18] MEDS ORDERED: OXYTOCIN 30 UNITS/LR 500 ML IV SCH (10:30)
[2016-12-18] MEDS: MINERAL OIL LIGHT 10 ML VIAL TOP SCH (18:59)
--- NOTE | 2016-12-18 19:24 | LDN ---
Date/Time of Note Date/Time of Note DATE: 12/18/16 TIME: 19:21 Delivery Summary of a viable over intact perineum Weeks of Gestation 39+ Placenta Delivered: Spontaneously, Intact & Complete Meconium: none Episiotomy: No Perineal laceration: 1 Laceration repair: 1st degree perineal laceration was repaired in layers with 2 0 Vicryl Anesthesia type: Local Estimated blood loss: 600 Sponge & Needle done & correct: Yes All needle counts correct: Yes Any foreign bodies felt in the: No Problems: Infant Delivery Information Sex Sex: male Apgars 1 Minute: 8 5 Minute: 9 Suctioning Nose & mouth suctioned at onur: Yes Delee suction performed: No Umbilical Cord Umbilical cord with: 3 Vessels Cord presentations: no nuchal cord Cord Blood was obtained: Yes Mother & Baby Disposition Disposition Mom & Baby to Maternity; Good: Yes (mother andbaby were recoverred in good condition ) Mom transferred to: Other (maternity ) Baby to NICU: No LIANG FRANCE MD December 18, 2016 19:24
[2016-12-18] MEDS ORDERED: CLINDAMYCIN 900 MG/D5W (PMX) 50 ML IVPB SCH (20:00)
[2016-12-18] MEDS ORDERED: ACETAMINOPHEN 325 MG TAB PO PRN (20:00)
[2016-12-18] MEDS: GENTAMICIN 80 MG/NS (PMX) 50 ML IVPB SCH (20:48)
[2016-12-18 22:35] VITALS: BP 115/71; PULSE 71; RESP 17
[2016-12-18] MEDS: LACTATED RINGER'S 1,000 ML IV* SCH (22:50)
[2016-12-18] MEDS ORDERED: OXYTOCIN 30 UNITS/LR 500 ML IV PRN (23:00)
[2016-12-18] MEDS ORDERED: CARBOPROST 250 MCG INJ IM PRN (23:00)
[2016-12-18] MEDS ORDERED: BENZOCAINE 20% 56 ML SPRAY TOP PRN (23:00)
[2016-12-18] MEDS ORDERED: MISOPROSTOL 200 MCG TAB PR PRN (23:00)
[2016-12-18] MEDS ORDERED: LANOLIN 7 GM TUBE TOP PRN (23:00)
[2016-12-18] MEDS ORDERED: ACETAMINOPHEN/CODEINE #3 TAB PO PRN ×2 (23:00)
[2016-12-18] MEDS ORDERED: ZOLPIDEM 5 MG TAB PO PRN (23:00)
[2016-12-18] MEDS ORDERED: METHYLERGONOVINE 0.2 MG INJ IM PRN (23:00)
[2016-12-18] MEDS ORDERED: WITCH HAZEL/GLYCERIN PAD PR PRN (23:00)
[2016-12-18] MEDS ORDERED: DIBUCAINE 1% 30 GM OINT PR PRN (23:00)
[2016-12-19 00:14] VITALS: BP 115/69; PULSE 85; RESP 18
[2016-12-19] MEDS: IBUPROFEN 600 MG TAB PO SCH ×4 (00:14→17:27)
[2016-12-19 04:00] VITALS: BP 116/67; PULSE 70; RESP 17
[2016-12-19] MEDS: GENTAMICIN 80 MG/NS (PMX) 50 ML IVPB SCH ×3 (04:06→20:31)
[2016-12-19] MEDS: LACTATED RINGER'S 1,000 ML IV* SCH ×3 (04:07→22:50)
[2016-12-19] MEDS: CLINDAMYCIN 900 MG/D5W (PMX) 50 ML IVPB SCH ×3 (05:43→17:28)
[2016-12-19 08:00] VITALS: BP 101/70; PULSE 67
[2016-12-19 08:03] LABS: ADD SCAN DIFF NO
[2016-12-19 08:09] LABS: BASOPHILS % 0.3 % (0.0-2.0); EOSINOPHILS # 1.3 10^3/ul (0.0-0.5); EOSINOPHILS % 10.6 % (0.0-7.0); HEMATOCRIT 30.4 % (37.0-47.0); HEMOGLOBIN 10.2 g/dl (12.0-16.0); LYMPHOCYTES # 2.6 10^3/ul (0.8-2.9); LYMPHOCYTES % 21.7 % (15.0-51.0); MEAN CORPUSCULAR HEMOGLOBIN 30.7 pg (29.0-33.0); MEAN CORPUSCULAR HGB CONC 33.6 g/dl (32.0-37.0); MEAN CORPUSCULAR VOLUME 91.6 fl (82.0-101.0); MEAN PLATELET VOLUME 11.1 fl (7.4-10.4); MONOCYTE # 1.1 10^3/ul (0.3-0.9); MONOCYTES % 9.3 % (0.0-11.0); NEUTROPHILS % 57.7 % (39.0-77.0); PLATELET COUNT 145 10^3/UL (140-415); RED BLOOD COUNT 3.32 10^6/ul (4.20-5.40); RED CELL DISTRIBUTION WIDTH 13.6 % (11.5-14.5); WHITE BLOOD COUNT 12.1 10^3/ul (4.8-10.8)
[2016-12-19] MEDS: SENNA/DOCUSATE NA (8.6MG/50MG) TAB PO SCH ×2 (08:31→20:31)
[2016-12-19] MEDS: MAGNESIUM HYDROXIDE 30ML CUP PO SCH ×2 (08:31→20:31)
[2016-12-19 16:00] VITALS: BP 110/78; PULSE 77; RESP 18
--- NOTE | 2016-12-19 17:52 | DS ---
Date/Time of Note Date/Time of Note home next day DATE: 12/19/16 TIME: 17:51 Obstetrical Discharge Record Final Diagnosis Final Diagnosis: Term delivered Other Final Diagnosis S/P vaginal delivery Vaginal Delivery Obstetrical Delivery: Spontaneous, Laceration, Repaired Complications Augmentation: Yes Induction: Yes Condition on Discharge Physical Assessment Last Vitals: see nurses notes Voiding: Yes Bowel Movement: Yes Breast: Soft, non-tender, Filling Fundus: Firm Abdomen and Incision: soft BS + Episiotomy: perineum healing Calf Tenderness: No Patient Condition: Good LIANG FRANCE MD December 19, 2016 17:52
--- NOTE | 2016-12-19 17:54 | PD.PPDC ---
[employer] Discharge Instruction Provider Information Physician Information 26 y/o female had vaginal delivery Diagnosis Final Diagnosis: S/P vaginal delivery Condition Patient Condition: Good Diet Diet: Resume Regular Diet Activity/Restrictions Activity: Normal Activity May Shower Restrictions: No Exercising No Lifting Nothing in the Vagina Return to Work or School: Feb 07, 2017 Follow-up Follow-up with Physician: 4, Week/Weeks (in clinic ) Return to clinic for OB Instructions: Breast Tenderness Depression LIANG FRANCE MD December 19, 2016 17:54
[2016-12-19] MEDS ORDERED: IBUP-1542 PO (17:55)
[2016-12-19 19:30] VITALS: BP 115/75; PULSE 83; RESP 18
[2016-12-20] MEDS: IBUPROFEN 600 MG TAB PO SCH ×3 (00:02→12:10)
[2016-12-20] MEDS: CLINDAMYCIN 900 MG/D5W (PMX) 50 ML IVPB SCH ×3 (00:02→12:00)
[2016-12-20] MEDS: GENTAMICIN 80 MG/NS (PMX) 50 ML IVPB SCH ×2 (03:55→12:01)
[2016-12-20 04:00] VITALS: BP 122/69; PULSE 68; RESP 18
[2016-12-20] MEDS: LACTATED RINGER'S 1,000 ML IV* SCH (06:25)
[2016-12-20 07:50] VITALS: BP 104/63; PULSE 66; RESP 20
[2016-12-20] MEDS: MAGNESIUM HYDROXIDE 30ML CUP PO SCH (08:50)
[2016-12-20] MEDS: SENNA/DOCUSATE NA (8.6MG/50MG) TAB PO SCH (08:50)
[2016-12-20] MEDS ORDERED: VARICELLA VACCINE LIVE/PF 1,350 UNIT/0.5 ML ML SC* ONE (09:00)
[2016-12-20] MEDS ORDERED: DIPHTH/TET/ACEL PERTUSS (ADULT) 0.5 ML VIAL IM* ONE (09:00)
[2016-12-20] MEDS ORDERED: MEASLES,MUMPS,RUBELLA VACCINE INJ SC* ONE (09:00)
== END 2016-12-20 15:00 | disposition home or self-care (01) | DRG 775 ==
LOC: L-D 10:17 → PP1 12-18 22:37
PROVIDERS: ADMIT Obstetrics & Gynecology; ATTEND Obstetrics & Gynecology
PROC: 10E0XZZ Delivery of Products of Conception, External Approach (ICD-10-PCS; principal; 2016-12-18)
PROC: 0HQ9XZZ Repair Perineum Skin, External Approach (ICD-10-PCS; 2016-12-18)
DX: O70.0 First degree perineal laceration during delivery (principal); Z37.0 Single live birth; Z3A.39 39 weeks gestation of pregnancy
CPT/HCPCS: 62319; 85025; 85610; 85730; 86592; 86900; 86901; 87040; 87086; 90715; 90716; A4310; J0290; J1580; J2405; J2590; J3010; J7120

== ENCOUNTER 2017-01-21 12:00 | Emergency (ER) | payer OTHER ==
[~2017-01-21] VITALS: Ht 152.4 cm; Wt 60.5 kg
[~2017-01-21 12:00] MED LIST changes: +IBUP-1542 PO
[2017-01-21 12:05] VITALS: Ht 152.4 cm; Wt 60.5 kg
--- NOTE | 2017-01-21 12:42 | ERD ---
ER Documentation Chief Complaint Date/Time DATE: 01/21/17 TIME: 12:38 Chief Complaint Sent from for eval fever HPI Patient is a 26-year-old female who presents with 6 days of pain and swelling to her right breast associated with fever. She also reports a gradual onset, intermittent headache. She denies vomiting or photophobia. She denies dysuria. She denies cough. She denies abdominal pain. She denies discharge from her breast. The patient is one-month status post vaginal delivery. She denies significant vaginal discharge. She is pumping milk, but not breast- feeding. ROS All systems reviewed and are negative except as per history of present illness. Medications Home Meds Active Scripts Acetaminophen* (Tylophen*) 500 Mg Capsule, 500 MG PO Q6H Y for PAIN, #20 TAB Prov:BE RIOS MD 01/21/17 Cephalexin* (Keflex*) 500 Mg Capsule, 500 MG PO QID for 7 Days, CAP Prov:BE RIOS MD 01/21/17 Clindamycin Hcl* (Clindamycin Hcl*) 300 Mg Capsule, 300 MG PO TID for 10 Days, CAP Prov:BE RIOS MD 01/21/17 Ibuprofen* (Ibuprofen*) 600 Mg Tablet, 600 MG PO Q6, #30 TAB 0 Refills Prov:LIANG FRANCE MD 12/19/16 Reported Medications Multivit/Min/Fol Ac/Iron/Pren* ( S*) 1 Tab Tab, 1 TAB PO DAILY, TAB 2 Allergies Allergies: Coded Allergies: No Known Drug Allergy (Verified Allergy, Unknown, 10/06/16) PMhx/Soc Past medical history: None Past surgical history: None Social history: Denies tobacco, alcohol or illicit drugs. History of Surgery: No Anesthesia Reaction: No Hx Neurological Disorder: No Hx Respiratory Disorders: No Hx Cardiac Disorders: No Hx Psychiatric Problems: No Hx Miscellaneous Medical Probl: No Hx Alcohol Use: No Hx Substance Use: No Hx Tobacco Use: No FmHx Family History: No coronary disease, No diabetes Physical Exam Vitals Vital Signs Date Time Temp Pulse Resp B/P Pulse Ox O2 Delivery O2 Flow Rate FiO2 01/21/17 12:05 101.3 103 20 102/58 98 Physical Exam Const: Alert, no acute distress Head: Atraumatic Eyes: Normal Conjunctiva, no pallor, no icterus ENT: Normal External Ears, Nose and Mouth. Moist mucous membranes, clear oropharynx Neck: Full range of motion..~ No meningismus. No adenopathy Resp: Clear to auscultation bilaterally, no wheezes, no rales Cardio: Regular rate and rhythm, no murmurs Abd: Soft, non tender, non distended. Breast: Mild erythema, warmth and tenderness to the right breast. There is slight asymmetry compared with the contralateral breast. There is no expressible nipple discharge. There is no fluctuance. Skin: No petechiae or rashes Back: No midline or flank tenderness Ext: No cyanosis, or edema Neur: Awake and alert, cranial nerves II through XII intact bilaterally, strength and sensation full in 4 extremities. Psych: Normal Mood and Affect Procedures/MDM MDM: Patient is a 26-year-old female who presents with 6 days of right breast pain, swelling, warmth and fever. She complains of mild headache, but has no meningeal signs, no vomiting, no photophobia. She denies dysuria, abdominal pain, cough or respiratory symptoms. Her physical exam of the right breast is suggestive of mastitis. She has not had nipple discharge. An ultrasound of the breast did not demonstrate abscess. I suspect that the source of her fever is mastitis, and the patient is lactating. I will prescribe her a course of clindamycin and Keflex. I have advised her to take Tylenol for pain and fever. Advised her to follow-up with your PMD in 2 days or return to the ER if her symptoms have not improved or if she is still experiencing fever. I do not have suspicion for sepsis. The patient has borderline tachycardia and a normal blood pressure. She does not have systemic symptoms. Given the clear association between her breast symptoms and fever, I do not believe that further infectious workup is warranted at this time. I did advise the patient on return precautions. I advised her to continue pumping breast milk to avoid stasis. Departure Diagnosis: Primary Impression: Mastitis Condition: Stable BE RIOS MD Jan 21, 2017 12:42
--- NOTE | 2017-01-21 13:20 | RADRPT ---
PROCEDURE: Bilateral breast ultrasound, complete. CLINICAL INDICATION: 26-year-old breast-feeding female with bilateral breast pain and swelling. TECHNIQUE: Whole breast ultrasound is performed. COMPARISON: None FINDINGS: Ultrasound of the breast shows no evidence of mass, cyst, fluid collection or other sonographic abno rmality. There is no evidence of axillary adenopathy. IMPRESSION: No sonographic evidence of malignancy. BIRADS 1 (Negative). Recommend clinical management. RPTAT: GG .Christoph Frank MD, MD Date Time Electronically viewed and signed by .Christoph Frank MD, MD on 01/21/2017 13:19 .L/
[2017-01-21] MEDS ORDERED: CLIN-73 PO (14:41)
[2017-01-21] MEDS ORDERED: ACET500C5 PO (14:41)
[2017-01-21] MEDS ORDERED: CEPH-443 PO (14:41)
== END 2017-01-21 15:17 | disposition home or self-care (01) ==
LOC: FTE 12:00
DX: N61.0 Mastitis without abscess (principal)
CPT/HCPCS: 76641

== ENCOUNTER 2018-03-20 09:33 | Inpatient (IN) | END 2018-03-23 13:35 | disposition home or self-care (01) | DRG 775 ==